=== PATIENT | female | born 2000 | race Caucasian/White ===

== ENCOUNTER 2025-02-07 11:21 | Inpatient (IN) ==
[2025-02-07] MEDS ORDERED: TERBUTALINE 1 MG/ML VIAL SUBQ PRN (11:33)
[2025-02-07] MEDS ORDERED: OXYTOCIN/SODIUM CHLORIDE 500 ML IV PRN (11:33)
[2025-02-07] MEDS ORDERED: hydrALAZINE INJ 20 MG/ML VIAL IVP PRN (11:33)
[2025-02-07] MEDS ORDERED: fentaNYL 100 MCG/2 ML VIAL IVP PRN (11:33)
[2025-02-07] MEDS ORDERED: LABETALOL 20 MG/4 ML SYRINGE IVP PRN ×3 (11:33)
[2025-02-07] MEDS ORDERED: SODIUM CHLORIDE FLUSH 0.9% 10 ML SYRINGE IVP PRN (11:33)
[2025-02-07] MEDS ORDERED: OXYTOCIN 10 UNIT/ML VIAL IM PRN (11:33)
[2025-02-07] MEDS ORDERED: CARBOPROST TROMETHAMINE 250 MCG/ML VIAL IM PRN (11:33)
--- NOTE | 2025-02-07 11:39 | HISTORY & PHYSICAL EXAMINATION ---
Admit History Smoking Status: Former smoker Other Maternal History Other Maternal History: HPI: This 24 yo @ 37+2 weeks by LMP and confirmed by 10+2 week ultrasound. She presents to L&D for medical induction of labor following diagnosis of gestational hypertension. Upon arrival, cervical exam was deferred given she has not been horacio and early gestational age. She has been consented for medical induction of labor and plan of care reviewed with [facility]. Reviewed that risks of labor/induction include but are not limited to section, prolonged labor, vacuum extraction, episotomy, hemorrhage, and additional risks exist re: prolonged second stage related to extraction. Reviewed back up OBGYN is available for consultations, emergency interventions and transfer of care if indicted. She has been a patient of [facility] for the duration of her which has remained uncomplicated with the exception of gestational hypertension. She and her Gigi were active participants in group care program. ROS: No Headache, visual changes or right upper quadrant abdominal pain. Denies significant N/V. Denies urinary urgency or dysuria. All other symptoms reviewed and were negative except per HPI. In the event of an emergency, accepts the administration of blood products. BP: 122/65 (in clinic: systolic 130-160/ diastolic 64-87) Labs: H&H 11.2/35.0, PLT 270, Serum creatinine 0.4, AST 20, ALT 19, urine MTP 0.2 Last u/s EFW: 54th percentile on 10/23/2024 Total maternal weight gain: 39# LMP: 04/24/24 KATI by LMP: 01/29/25 US: @ 10.2 wks NOT c/w LMP and dates with KATI 02/26/2025 Final KATI: 02/26/2025 ALLERGIES: NKDA/ tree nuts RX: PNV Pre- Weight: 230 BMI: 36 Blood type: A+ Antibody: Negative CBC: PLT 306; 13.5/38.6 RUB: Immune VZV: NR HBsAg: Negative HepC: NR RPR/AB-EIA: NR HIV: NR PAP: 2022-normal GC/CT: Negative HSV: denies in self and partner Genetic testing: Prequel- Negative Covid: x 2 Flu: declines FAS: Placenta: Posterior Cord: 3VC MARC: 13cm EFW: 471g 50gm OGCT: 129 3HR GTT: TDAP: 12/24/2024 Breast Pump: 12/24/2024 3rd trimester: GBS: 01/27/2025 POSITIVE EPDS 1 Delivery plan: MOD: Anticipate Contraception: undecided. Physical exam: Normocephalic, atraumatic Lungs no increased work of breathing Abdomen gravid, soft, nontender. EFW 3700 FHR baseline 120, moderate variability, + accelerations, no decelerations No uterine activity at start of MIOL. Soft uterine resting tone SVE deferred, vertex since 26 weeks. Last confirmed 02/04/2025 by BSUS, membranes intact Bilateral LE's 1+ edema Mood is good. Assessment: 24 yo @ 37+2 weeks gestation by 10+2 wk U/S Gestational hypertension FHR 130 Cat I GBS POSITIVE Plan: Admit to [facility] for MEDICAL induction of labor Misoprostol 50mcg q 4 hours (max x6 doses) Reviewed plan of care with oncall OBGYN. Will request a formal consult as indicated Will plan for daily CBC & CMP through labor course GBS positive. Will plan for Ampicillin with SROM or active labor. Continuous monitoring Jacuzzi PRN. Nitrous oxide PRN. Epidural PRN Maternal Request. Anticipate . Meds/Allgy Home Medications Ambulatory Orders Medication Instructions Recorded Confirmed vits no.[id number]-ferrous fum 1 tab PO DAILY 02/07/25 28 mg iron-folic acid 800 mcg tablet (Classic ) aspirin 81 mg tablet,delayed 81 mg PO DAILY 01/31/25 1 release (Adult Low Dose Aspirin) Allergies Allergies Allergy/AdvReac Type Severity Reaction Status Date / Time tree nuts Allergy Severe Itching Uncoded 02/07/25 14:17 PFSH Active Problems All Active Problems (Updated 02/07/25 @ 11:34 by AIDE Quiles) 37 weeks gestation of (Acute) Gestational HTN (Acute) Elevated blood pressure reading in office without diagnosis of hypertension (Acute) Spotting affecting (Acute) Positive test (Acute) Supervision of normal (Acute) Pain of left thumb (Acute) Surgical History Surgical History (Updated 07/16/24 @ 10:38 by Nhung Kasper RN) [place] teeth extracted Family History Family History (Updated 07/16/24 @ 10:38 by hNung Kasper RN) Maternal grandmother Breast cancer Social History Social History (Updated 12/27/24 @ 12:41 by AIDE Quiles) Smoking Status: Never smoker If you are a former smoker, when did you quit? (Date/Year): 06/2024 Number of Years Smoked: 6 Do you dip or chew tobacco?: No ETOH Use: None Substance Use: denies use Plan for Labor Plan For Labor I expect patient to be DC'd or transferred within 96 hours.: Yes Conclusion/Plan Lab Results 02/07/25 13:48 02/07/25 13:05
--- NOTE | 2025-02-07 12:10 | PHARMACY PROGRESS NOTE ---
Best Possible Medication History Admit Date and Time: 02/07/25 1133 Home Medications Medication Instructions Recorded Confirmed Type vits no.126-ferrous fum 1 tab PO DAILY 02/07/25 History 28 mg iron-folic acid 800 mcg tablet (Classic ) aspirin 81 mg tablet,delayed 81 mg PO DAILY 01/31/25 1 History release (Adult Low Dose Aspirin) Processed by: Pharmacy (Medication reconciliation completed by Addictions TherapistGerry) Medications reviewed in ED?: No Medication History completed: Yes Patient Interview: Completed Secondary Source(s): Insurance records [facility] Statement: As the person ultimately responsible for medication therapy, providers are able to order a medication from an existing home medication list in [facility] via the "Reconcile Routine" prior to Confirmation of that medication by manager support services. Such practice is discouraged except when the physician, in their clinical judgment, deems that a medical need exists for a medication without regard to previous use.
[2025-02-07 12:49] LABS: TOTAL PROTEIN,URINE TIMED 9.0 mg/dL
[2025-02-07] MEDS: SODIUM CHLORIDE FLUSH 0.9% 10 ML SYRINGE IVP SCH (13:18)
[2025-02-07 13:37] LABS: ALT ALANINE AMINOTRANSFERASE 19.0 IU/L (10-60); AST ASPARTATE AMINOTRANSFERASE 20.0 IU/L (10-42); BUN - BLOOD UREA NITROGEN 5.0 mg/dL (6-20); CARBON DIOXIDE - CO2 21.0 mmol/L (21-32); CREATININE 0.4 mg/dL (0.6-1.3); GFR - MDRD 193.0 (>89)
[2025-02-07 13:53] LABS: HCT - HEMATOCRIT 35.0 % (37.0-47.0); HGB - HEMOGLOBIN 11.2 g/dL (12.0-16.0); MEAN PLATELET VOLUME 8.9 fL (7.9-10.8); NRBC ABSOLUTE COUNT (AUTO) 0.00 x10^3/uL; NUCLEATED RED BLOOD CELLS AUTO 0.0 /100WBC; PLT - PLATELET COUNT 270 10^3/uL (130-450); RED CELL DISTRIBUTION WIDTH 14.8 % (12.0-15.0)
--- NOTE | 2025-02-08 08:29 | PROVIDER PROGRESS NOTE ---
Labor Progress Note Labor Progress Note Labor Progress Note/Additional Text: S: 24 yo @ 37+3 weeks gestation her on hospital day #2 for medical IOL for gestational hypertension. She has now received misoprostol 50mg x5 doses. Able to sleep/doze through most of the night. O: FHR 120-125, moderate variability, + accelerations, no significant decelerations. SVE deferred to this point BP: normotensive overnight: 120/58, 127/70, 116/68, 135/75 A: 24 yo @ 37+3 wks gestation Pre-induction cervical ripening. Gestational hypertension GBS positive P: Continuous monitoring Ampicillin for GBS prophylaxis per protocol (upon active labor onset or SROM) Delay of #6 dose of misoprostol until 11:00 to allow patient to shower and have break from monitor Will hold on repeat labs this morning as she has been normotensive overnight. Will discuss with patient, and likely recommend, cervical ripening balloon placement following SVE. Will encourage movement Anticipate .
--- NOTE | 2025-02-08 08:42 | PROVIDER PROGRESS NOTE ---
Subjective Subjective Subjective: SVE 3/70/-1 very anterior. Membranes swept. Patient breathing through contractions. Misoprostol may no longer be our best option. Will plan to release bag of water and start ampicillin closer to 11:00. Current Medications Current Medications Current Medications: Current Medications Generic Name Dose Route Start Last Admin Trade Name Freq PRN Reason Stop Dose Admin Carboprost Tromethamine 250 mcg 02/07/25 11:33 Carboprost Tromethamine 250 Mcg/Ml Vial IM .ONCE PRN Hemorrhage Fentanyl 50 mcg 02/07/25 11:33 Fentanyl 100 Mcg/2 Ml Vial IVP Q1H PRN Severe Pain (score 7-10) Hydralazine HCl 5 - 10 mg 02/07/25 11:33 Hydralazine Inj 20 Mg/Ml Vial IVP Q20M PRN SBP> or= 160 OR DBP> or= 110 Protocol Lactated Ringer's 500 mls @ 999 mls/hr 02/07/25 11:33 Lr IV PRN PRN Heart Rate Abnormalities Oxytocin/Sodium Chloride 500 mls @ 999 mls/hr 02/07/25 11:33 Pitocin/Sodium Chloride IV PRN PRN POST- HEMORR PREVENTION Protocol 999 MILLIUNIT/MIN Tranexamic Acid 1,000 mg in 100 mls @ 600 mls/hr 02/07/25 11:33 Tranexamic 1,000 Mg/100ml-Nacl IV Q30M PRN EBL >1200mL and within 3hr Labetalol HCl 20 - 80 mg 02/07/25 11:33 Labetalol 20 Mg/4 Ml Syringe IVP Q10M PRN SBP> or= 160 OR DBP> or= 110 Protocol Labetalol HCl 20 mg 02/07/25 11:33 Labetalol 20 Mg/4 Ml Syringe IVP .ONCE PRN SBP> or= 160 OR DBP> or= 110 Protocol Labetalol HCl 20 - 40 mg 02/07/25 11:33 Labetalol 20 Mg/4 Ml Syringe IVP Q10M PRN SBP> or= 160 OR DBP> or= 110 Protocol Lidocaine HCl 20 ml 02/07/25 11:33 Lidocaine 1% 20 Ml Mdv ID 02/10/25 11:33 .ONCE PRN PERINEAL REPAIR Misoprostol 600 mcg 02/07/25 11:33 Misoprostol 200 Mcg Tablet BC .ONCE PRN Hemorrhage Misoprostol 800 mcg 02/07/25 11:33 Misoprostol 200 Mcg Tablet [place] .ONCE PRN Hemorrhage Misoprostol 50 mcg 02/07/25 13:00 02/08/25 05:13 Misoprostol 100 Mcg Tablet BC 50 mcg Q4H SHRUTHI Administration Nifedipine 10 - 20 mg 02/07/25 11:33 Nifedipine 10 Mg Capsule PO Q20M PRN SBP> or= 160 OR DBP> or= 110 Protocol Oxytocin 10 unit 02/07/25 11:33 Oxytocin 10 Unit/Ml Vial IM .ONCE PRN Step One if no IV access. Sodium Chloride 10 ml 02/07/25 11:33 Sodium Chloride Flush 0.9% 10 Ml Syringe IVP PRN PRN NEEDED PER PROVIDER ORDERS Sodium Chloride 10 ml 02/07/25 12:00 02/08/25 07:42 Sodium Chloride Flush 0.9% 10 Ml Syringe IVP Not Given Q8H SHRUTHI Terbutaline Sulfate 0.25 mg 02/07/25 11:33 Terbutaline 1 Mg/Ml Vial SUBQ .ONCE PRN Tachystole Objective Vital Signs/Intake & Output Intake & Output: Intake & Output 02/05/25 02/06/25 02/07/25 02/08/25 23:59 23:59 23:59 23:59 Weight (kg) 276 lb 9.6 oz Lab Results 02/07/25 13:48 02/07/25 13:05 Other Labs: Lab Results x24hrs 02/07/25 02/07/25 02/07/25 Range/Units 13:48 13:05 11:50 WBC 9.8 (4.8-10.8) x10^3/uL RBC 4.45 (4.20-5.40) 10^6/uL Hgb 11.2 L (12.0-16.0) g/dL Hct 35.0 L (37.0-47.0) % MCV 78.7 L (81.0-99.0) fL MCH 25.2 L (27.0-31.0) pg MCHC 32.0 (32.0-36.0) g/dL RDW 14.8 (12.0-15.0) % Plt Count 270 (130-450) 10^3/uL MPV 8.9 (7.9-10.8) fL Neut # (Auto) 7.2 H (1.5-6.6) 10^3/uL Lymph # (Auto) 1.8 (1.5-3.5) 10^3/uL [place] # (Auto) 0.7 (0.0-1.0) 10^3/uL Eos # (Auto) 0.1 (0.0-0.7) 10^3/uL Baso # (Auto) 0.0 (0.0-0.1) 10^3/uL Absolute Nucleated RBC 0.00 x10^3/uL Nucleated RBC % 0.0 /100WBC Sodium 135 (135-145) mmol/L Potassium 3.7 (3.5-4.5) mmol/L Chloride 105 (101-111) mmol/L Carbon Dioxide 21 (21-32) mmol/L Anion Gap 9.0 (6-13) BUN 5 L (6-20) mg/dL Creatinine 0.4 L (0.6-1.3) mg/dL Estimated GFR (MDRD) 193 (>89) Glucose 68 L (74-104) mg/dL Calcium 9.2 (8.5-10.3) mg/dL Total Bilirubin 0.3 (0.2-1.0) mg/dL AST 20 (10-42) IU/L ALT 19 (10-60) IU/L Alkaline Phosphatase 152 H (42-121) IU/L Total Protein 6.8 (6.4-8.9) g/dL Albumin 3.5 (3.2-5.5) g/dL Globulin 3.3 (2.1-4.2) g/dL Albumin/Globulin Ratio 1.1 (1.0-2.2) Urine Creatinine 58.0 mg/dL Ur Total Protein Timed 9 mg/dL Protein/Creatinin Ratio 0.2 (<=0.2) Blood Type A POSITIVE Antibody Screen NEGATIVE
--- NOTE | 2025-02-08 10:01 | PROVIDER PROGRESS NOTE ---
Subjective Subjective Subjective: Patient became increasing uncomfortable, requesting epidural. Anesthesia notified. Current Medications Current Medications Current Medications: Current Medications Generic Name Dose Route Start Last Admin Trade Name Freq PRN Reason Stop Dose Admin Carboprost Tromethamine 250 mcg 02/07/25 11:33 Carboprost Tromethamine 250 Mcg/Ml Vial IM .ONCE PRN Hemorrhage Fentanyl 50 mcg 02/07/25 11:33 Fentanyl 100 Mcg/2 Ml Vial IVP Q1H PRN Severe Pain (score 7-10) Hydralazine HCl 5 - 10 mg 02/07/25 11:33 Hydralazine Inj 20 Mg/Ml Vial IVP Q20M PRN SBP> or= 160 OR DBP> or= 110 Protocol Lactated Ringer's 500 mls @ 999 mls/hr 02/07/25 11:33 Lr IV PRN PRN Heart Rate Abnormalities Oxytocin/Sodium Chloride 500 mls @ 999 mls/hr 02/07/25 11:33 Pitocin/Sodium Chloride IV PRN PRN POST- HEMORR PREVENTION Protocol 999 MILLIUNIT/MIN Tranexamic Acid 1,000 mg in 100 mls @ 600 mls/hr 02/07/25 11:33 Tranexamic 1,000 Mg/100ml-Nacl IV Q30M PRN EBL >1200mL and within 3hr Ampicillin Sodium 2 gm/ Sodium 100 mls @ 100 mls/hr 02/08/25 09:33 Chloride IV 02/08/25 10:32 ONCE ONE Ampicillin Sodium 1 gm/ Sodium 100 mls @ 200 mls/hr 02/08/25 14:00 Chloride IV Q4H [facility] Labetalol HCl 20 - 80 mg 02/07/25 11:33 Labetalol 20 Mg/4 Ml Syringe IVP Q10M PRN SBP> or= 160 OR DBP> or= 110 Protocol Labetalol HCl 20 mg 02/07/25 11:33 Labetalol 20 Mg/4 Ml Syringe IVP .ONCE PRN SBP> or= 160 OR DBP> or= 110 Protocol Labetalol HCl 20 - 40 mg 02/07/25 11:33 Labetalol 20 Mg/4 Ml Syringe IVP Q10M PRN SBP> or= 160 OR DBP> or= 110 Protocol Lidocaine HCl 20 ml 02/07/25 11:33 Lidocaine 1% 20 Ml Mdv ID 02/10/25 11:33 .ONCE PRN PERINEAL REPAIR Misoprostol 600 mcg 02/07/25 11:33 Misoprostol 200 Mcg Tablet BC .ONCE PRN Hemorrhage Misoprostol 800 mcg 02/07/25 11:33 Misoprostol 200 Mcg Tablet [place] .ONCE PRN Hemorrhage Misoprostol 50 mcg 02/07/25 13:00 02/08/25 05:13 Misoprostol 100 Mcg Tablet BC 50 mcg Q4H SHRUTHI Administration Nifedipine 10 - 20 mg 02/07/25 11:33 Nifedipine 10 Mg Capsule PO Q20M PRN SBP> or= 160 OR DBP> or= 110 Protocol Oxytocin 10 unit 02/07/25 11:33 Oxytocin 10 Unit/Ml Vial IM .ONCE PRN Step One if no IV access. Sodium Chloride 10 ml 02/07/25 11:33 Sodium Chloride Flush 0.9% 10 Ml Syringe IVP PRN PRN NEEDED PER PROVIDER ORDERS Sodium Chloride 10 ml 02/07/25 12:00 02/08/25 07:42 Sodium Chloride Flush 0.9% 10 Ml Syringe IVP Not Given Q8H SHRUTHI Terbutaline Sulfate 0.25 mg 02/07/25 11:33 Terbutaline 1 Mg/Ml Vial SUBQ .ONCE PRN Tachystole Objective Vital Signs/Intake & Output Vital Signs: Vital Signs x48h Temp Pulse Resp BP 02/08/25 08:39 36.8 C 93 16 135/74 H Intake & Output: Intake & Output 02/05/25 02/06/25 02/07/25 02/08/25 23:59 23:59 23:59 23:59 Weight (kg) 276 lb 9.6 oz Lab Results 02/07/25 13:48 02/07/25 13:05 Other Labs: Lab Results x24hrs 02/07/25 02/07/25 02/07/25 Range/Units 13:48 13:05 11:50 WBC 9.8 (4.8-10.8) x10^3/uL RBC 4.45 (4.20-5.40) 10^6/uL Hgb 11.2 L (12.0-16.0) g/dL Hct 35.0 L (37.0-47.0) % MCV 78.7 L (81.0-99.0) fL MCH 25.2 L (27.0-31.0) pg MCHC 32.0 (32.0-36.0) g/dL RDW 14.8 (12.0-15.0) % Plt Count 270 (130-450) 10^3/uL MPV 8.9 (7.9-10.8) fL Neut # (Auto) 7.2 H (1.5-6.6) 10^3/uL Lymph # (Auto) 1.8 (1.5-3.5) 10^3/uL [place] # (Auto) 0.7 (0.0-1.0) 10^3/uL Eos # (Auto) 0.1 (0.0-0.7) 10^3/uL Baso # (Auto) 0.0 (0.0-0.1) 10^3/uL Absolute Nucleated RBC 0.00 x10^3/uL Nucleated RBC % 0.0 /100WBC Sodium 135 (135-145) mmol/L Potassium 3.7 (3.5-4.5) mmol/L Chloride 105 (101-111) mmol/L Carbon Dioxide 21 (21-32) mmol/L Anion Gap 9.0 (6-13) BUN 5 L (6-20) mg/dL Creatinine 0.4 L (0.6-1.3) mg/dL Estimated GFR (MDRD) 193 (>89) Glucose 68 L (74-104) mg/dL Calcium 9.2 (8.5-10.3) mg/dL Total Bilirubin 0.3 (0.2-1.0) mg/dL AST 20 (10-42) IU/L ALT 19 (10-60) IU/L Alkaline Phosphatase 152 H (42-121) IU/L Total Protein 6.8 (6.4-8.9) g/dL Albumin 3.5 (3.2-5.5) g/dL Globulin 3.3 (2.1-4.2) g/dL Albumin/Globulin Ratio 1.1 (1.0-2.2) Urine Creatinine 58.0 mg/dL Ur Total Protein Timed 9 mg/dL Protein/Creatinin Ratio 0.2 (<=0.2) Blood Type A POSITIVE Antibody Screen NEGATIVE
[2025-02-08] MEDS ORDERED: LIDOCAINE 2%-EPI 1:100000 20 ML MDV ONE (10:09)
[2025-02-08] MEDS ORDERED: ROPIVACAINE 0.2% 200 MG/100 ML BAG EP ONE (10:09)
[2025-02-08 11:04] LABS: HCT - HEMATOCRIT 36.6 % (37.0-47.0); HGB - HEMOGLOBIN 11.6 g/dL (12.0-16.0); MEAN PLATELET VOLUME 9.2 fL (7.9-10.8); NRBC ABSOLUTE COUNT (AUTO) 0.00 x10^3/uL; NUCLEATED RED BLOOD CELLS AUTO 0.0 /100WBC; PLT - PLATELET COUNT 270 10^3/uL (130-450); RED CELL DISTRIBUTION WIDTH 14.8 % (12.0-15.0)
[2025-02-08] MEDS: AMPICILLIN 2 GM in SODIUM CHLORIDE 0.9% MINIBAG 100 ML IV ONE (11:09)
[2025-02-08 11:13] LABS: TOTAL PROTEIN,URINE TIMED 20.0 mg/dL
[2025-02-08 11:18] LABS: ALT ALANINE AMINOTRANSFERASE 18.0 IU/L (10-60); AST ASPARTATE AMINOTRANSFERASE 18.0 IU/L (10-42); BUN - BLOOD UREA NITROGEN 6.0 mg/dL (6-20); CARBON DIOXIDE - CO2 22.0 mmol/L (21-32); CREATININE 0.5 mg/dL (0.6-1.3); GFR - MDRD 149.0 (>89)
--- NOTE | 2025-02-08 12:11 | PROVIDER PROGRESS NOTE ---
Subjective Prog Note Date Prog Note Date: 02/08/25 Prog Note Time: 12:00 Subjective Subjective: Contractions not tracing well since AROM (small amount of clear fluid). Given medical induction and needing to move towards delivery, IUPC placed to adequately trace contractions and allow for frequent positional changes. If contractions space out greater than q 3-4 minutes, and MVU's less than 200mmHg, will plan to begin oxytocin. Will place the order now, but can hold on initiating if contraction pattern is adequate. Will reassess for cervical change in 4 hours or sooner if indicated. FHT 125, moderate variability, + accelerations, no significant decelerations. Current Medications Current Medications Current Medications: Current Medications Generic Name Dose Route Start Last Admin Trade Name Freq PRN Reason Stop Dose Admin Carboprost Tromethamine 250 mcg 02/07/25 11:33 Carboprost Tromethamine 250 Mcg/Ml Vial IM .ONCE PRN Hemorrhage Fentanyl 50 mcg 02/07/25 11:33 Fentanyl 100 Mcg/2 Ml Vial IVP Q1H PRN Severe Pain (score 7-10) Hydralazine HCl 5 - 10 mg 02/07/25 11:33 Hydralazine Inj 20 Mg/Ml Vial IVP Q20M PRN SBP> or= 160 OR DBP> or= 110 Protocol Lactated Ringer's 500 mls @ 999 mls/hr 02/07/25 11:33 Lr IV PRN PRN Heart Rate Abnormalities Oxytocin/Sodium Chloride 500 mls @ 999 mls/hr 02/07/25 11:33 Pitocin/Sodium Chloride IV PRN PRN POST- HEMORR PREVENTION Protocol 999 MILLIUNIT/MIN Tranexamic Acid 1,000 mg in 100 mls @ 600 mls/hr 02/07/25 11:33 Tranexamic 1,000 Mg/100ml-Nacl IV Q30M PRN EBL >1200mL and within 3hr Ampicillin Sodium 1 gm/ Sodium 100 mls @ 200 mls/hr 02/08/25 14:00 Chloride IV Q4H SHRUTHI Labetalol HCl 20 - 80 mg 02/07/25 11:33 Labetalol 20 Mg/4 Ml Syringe IVP Q10M PRN SBP> or= 160 OR DBP> or= 110 Protocol Labetalol HCl 20 mg 02/07/25 11:33 Labetalol 20 Mg/4 Ml Syringe IVP .ONCE PRN SBP> or= 160 OR DBP> or= 110 Protocol Labetalol HCl 20 - 40 mg 02/07/25 11:33 Labetalol 20 Mg/4 Ml Syringe IVP Q10M PRN SBP> or= 160 OR DBP> or= 110 Protocol Lidocaine HCl 20 ml 02/07/25 11:33 Lidocaine 1% 20 Ml Mdv ID 02/10/25 11:33 .ONCE PRN PERINEAL REPAIR Misoprostol 600 mcg 02/07/25 11:33 Misoprostol 200 Mcg Tablet BC .ONCE PRN Hemorrhage Misoprostol 800 mcg 02/07/25 11:33 Misoprostol 200 Mcg Tablet [place] .ONCE PRN Hemorrhage Misoprostol 50 mcg 02/07/25 13:00 02/08/25 05:13 Misoprostol 100 Mcg Tablet BC 50 mcg Q4H SHRUTHI Administration Nifedipine 10 - 20 mg 02/07/25 11:33 Nifedipine 10 Mg Capsule PO Q20M PRN SBP> or= 160 OR DBP> or= 110 Protocol Oxytocin 10 unit 02/07/25 11:33 Oxytocin 10 Unit/Ml Vial IM .ONCE PRN Step One if no IV access. Sodium Chloride 10 ml 02/07/25 11:33 Sodium Chloride Flush 0.9% 10 Ml Syringe IVP PRN PRN NEEDED PER PROVIDER ORDERS Sodium Chloride 10 ml 02/07/25 12:00 02/08/25 07:42 Sodium Chloride Flush 0.9% 10 Ml Syringe IVP Not Given Q8H SHRUTHI Terbutaline Sulfate 0.25 mg 02/07/25 11:33 Terbutaline 1 Mg/Ml Vial SUBQ .ONCE PRN Tachystole Objective Vital Signs/Intake & Output Vital Signs: Vital Signs x48h Temp Pulse Resp BP 02/08/25 08:39 36.8 C 93 16 135/74 H Intake & Output: Intake & Output 02/05/25 02/06/25 02/07/25 02/08/25 23:59 23:59 23:59 23:59 Weight (kg) 276 lb 9.6 oz Lab Results 02/08/25 10:57 02/08/25 10:57 Other Labs: Lab Results x24hrs 02/08/25 02/08/25 02/07/25 Range/Units 10:57 10:51 13:48 WBC 12.4 H 9.8 (4.8-10.8) x10^3/uL RBC 4.66 4.45 (4.20-5.40) 10^6/uL Hgb 11.6 L 11.2 L (12.0-16.0) g/dL Hct 36.6 L 35.0 L (37.0-47.0) % MCV 78.5 L 78.7 L (81.0-99.0) fL MCH 24.9 L 25.2 L (27.0-31.0) pg MCHC 31.7 L 32.0 (32.0-36.0) g/dL RDW 14.8 14.8 (12.0-15.0) % Plt Count 270 270 (130-450) 10^3/uL MPV 9.2 8.9 (7.9-10.8) fL Neut # (Auto) 10.3 H 7.2 H (1.5-6.6) 10^3/uL Lymph # (Auto) 1.2 L 1.8 (1.5-3.5) 10^3/uL [place] # (Auto) 0.7 0.7 (0.0-1.0) 10^3/uL Eos # (Auto) 0.1 0.1 (0.0-0.7) 10^3/uL Baso # (Auto) 0.0 0.0 (0.0-0.1) 10^3/uL Absolute Nucleated RBC 0.00 0.00 x10^3/uL Nucleated RBC % 0.0 0.0 /100WBC Sodium 135 (135-145) mmol/L Potassium 3.6 (3.5-4.5) mmol/L Chloride 106 (101-111) mmol/L Carbon Dioxide 22 (21-32) mmol/L Anion Gap 7.0 (6-13) BUN 6 (6-20) mg/dL Creatinine 0.5 L (0.6-1.3) mg/dL Estimated GFR (MDRD) 149 (>89) Glucose 90 (74-104) mg/dL Calcium 8.7 (8.5-10.3) mg/dL Total Bilirubin 0.4 (0.2-1.0) mg/dL AST 18 (10-42) IU/L ALT 18 (10-60) IU/L Alkaline Phosphatase 126 H (42-121) IU/L Total Protein 6.6 (6.4-8.9) g/dL Albumin 3.3 (3.2-5.5) g/dL Globulin 3.3 (2.1-4.2) g/dL Albumin/Globulin Ratio 1.0 (1.0-2.2) Urine Creatinine 155.2 mg/dL Ur Total Protein Timed 20 mg/dL Protein/Creatinin Ratio 0.1 (<=0.2) Blood Type Antibody Screen 02/07/25 02/07/25 Range/Units 13:05 11:50 WBC (4.8-10.8) x10^3/uL RBC (4.20-5.40) 10^6/uL Hgb (12.0-16.0) g/dL Hct (37.0-47.0) % MCV (81.0-99.0) fL MCH (27.0-31.0) pg MCHC (32.0-36.0) g/dL RDW (12.0-15.0) % Plt Count (130-450) 10^3/uL MPV (7.9-10.8) fL Neut # (Auto) (1.5-6.6) 10^3/uL Lymph # (Auto) (1.5-3.5) 10^3/uL [place] # (Auto) (0.0-1.0) 10^3/uL Eos # (Auto) (0.0-0.7) 10^3/uL Baso # (Auto) (0.0-0.1) 10^3/uL Absolute Nucleated RBC x10^3/uL Nucleated RBC % /100WBC Sodium 135 (135-145) mmol/L Potassium 3.7 (3.5-4.5) mmol/L Chloride 105 (101-111) mmol/L Carbon Dioxide 21 (21-32) mmol/L Anion Gap 9.0 (6-13) BUN 5 L (6-20) mg/dL Creatinine 0.4 L (0.6-1.3) mg/dL Estimated GFR (MDRD) 193 (>89) Glucose 68 L (74-104) mg/dL Calcium 9.2 (8.5-10.3) mg/dL Total Bilirubin 0.3 (0.2-1.0) mg/dL AST 20 (10-42) IU/L ALT 19 (10-60) IU/L Alkaline Phosphatase 152 H (42-121) IU/L Total Protein 6.8 (6.4-8.9) g/dL Albumin 3.5 (3.2-5.5) g/dL Globulin 3.3 (2.1-4.2) g/dL Albumin/Globulin Ratio 1.1 (1.0-2.2) Urine Creatinine 58.0 mg/dL Ur Total Protein Timed 9 mg/dL Protein/Creatinin Ratio 0.2 (<=0.2) Blood Type A POSITIVE Antibody Screen NEGATIVE
[2025-02-08] MEDS ORDERED: ROPIVACAINE 0.2% 200 MG/100 ML BAG EP PRN (12:27)
--- NOTE | 2025-02-08 12:38 | ANESTHESIA PROCEDURE NOTE ---
Pre-Anesthesia VS, & Labs Diagnosis Surgical Diagnosis:: Induction of labor Procedure Procedure: vaginal delivery Vitals Vital Signs: Temp Pulse Resp BP Pulse Ox 36.8 C 93 16 135/74 H 99 02/08/25 08:39 02/08/25 08:39 02/08/25 08:39 02/08/25 08:39 02/07/25 15:31 NPO Last Fluid Intake: clear liquids Is Patient ?: Yes Lab Results Current Lab Results: Laboratory Tests 02/08/25 10:57: WBC 12.4 H, RBC 4.66, Hgb 11.6 L, Hct 36.6 L, MCV 78.5 L, MCH 24.9 L, MCHC 31.7 L, RDW 14.8, Plt Count 270, MPV 9.2, Neut # (Auto) 10.3 H, L ymph # (Auto) 1.2 L, [place] # (Auto) 0.7, Eos # (Auto) 0.1, Baso # (Auto) 0.0, Absolute Nucleated RBC 0.00, Nucleated RBC % 0.0, Sodium 135, Potassium 3.6, Chloride 106, Carbon Dioxide 22, Anion Gap 7.0, BUN 6, Creatinine 0.5 L, Estimated GFR (MDRD) 149, Glucose 90, Calcium 8.7, Total Bilirubin 0.4, AST 18, ALT 18, Alkaline Phosphatase 126 H, Total Protein 6.6, Albumin 3.3, Globulin 3.3, Albumin/Globulin Ratio 1.0 02/07/25 13:48: WBC 9.8, RBC 4.45, Hgb 11.2 L, Hct 35.0 L, MCV 78.7 L, MCH 25.2 L, MCHC 32.0, RDW 14.8, Plt Count 270, MPV 8.9, Neut # (Auto) 7.2 H, Lymph # (Auto) 1.8, [place] # (Auto) 0.7, Eos # (Auto) 0.1, Baso # (Auto) 0.0, Absolute Nucleated RBC 0.00, Nucleated RBC % 0.0 02/07/25 13:05: Sodium 135, Potassium 3.7, Chloride 105, Carbon Dioxide 21, Anion Gap 9.0, BUN 5 L, Creatinine 0.4 L, Estimated GFR (MDRD) 193, Glucose 68 L , Calcium 9.2, Total Bilirubin 0.3, AST 20, ALT 19, Alkaline Phosphatase 152 H, Total Protein 6.8, Albumin 3.5, Globulin 3.3, Albumin/Globulin Ratio 1.1, Blood Type A POSITIVE, Antibody Screen NEGATIVE Lab results reviewed: Yes 02/08/25 10:57 02/08/25 10:57 Meds/Allgy Home Medications Ambulatory Orders Medication Instructions Recorded Confirmed vits no.126-ferrous fum 1 tab PO DAILY 02/07/25 28 mg iron-folic acid 800 mcg tablet (Classic ) aspirin 81 mg tablet,delayed 81 mg PO DAILY 01/31/25 1 release (Adult Low Dose Aspirin) Allergies Allergies Allergy/AdvReac Type Severity Reaction Status Date / Time tree nuts Allergy Severe Itching Uncoded 02/07/25 14:17 PFSH Active Problems All Active Problems 37 weeks gestation of (Acute) Gestational HTN (Acute) Elevated blood pressure reading in office without diagnosis of hypertension (Acute) Spotting affecting (Acute) Positive test (Acute) Supervision of normal (Acute) Pain of left thumb (Acute) Surgical History Surgical History [place] teeth extracted Family History Family History (Updated 07/16/24 @ 10:38 by Nhung Kasper RN) Maternal grandmother Breast cancer Social History Social History (Updated 12/27/24 @ 12:41 by AIDE Quiles) Smoking Status: Never smoker If you are a former smoker, when did you quit? (Date/Year): 06/2024 Number of Years Smoked: 6 Do you dip or chew tobacco?: No ETOH Use: None Substance Use: denies use POLST POLST CPR Status: Attempt Resuscitation (CPR) Level of Medical Intervention: Full Treatment Anesthesia Exam (Expanded) Exam General: Alert, Oriented x3 and Cooperative Dental: WNL Mouth Openin Fingerbreadth Neck Mobility: Normal Mallampati classification: II Thyromental Distance: 4-6 cm Exam Exam Vital Signs: Vital Signs x48h Temp Pulse Resp BP 02/08/25 08:39 36.8 C 93 16 135/74 H Plan Plan Anesthesia Type: Epidural Consent for Procedure(s) Verified and Reviewed: Yes Code Status: Attempt Resuscitation ASA Classification ASA classification: 2-Mild systemic disease Is this case an emergency?: No
[2025-02-08] MEDS: LACTATED RINGERS 1,000 ML IV PRN (12:39)
[2025-02-08] MEDS: OXYTOCIN/SODIUM CHLORIDE 500 ML IV SCH (13:22)
[2025-02-08] MEDS: ONDANSETRON 4 MG/2 ML VIAL IVP PRN (14:15)
[2025-02-08] MEDS: AMPICILLIN 1 GM in SODIUM CHLORIDE 0.9% MINIBAG 100 ML IV SCH (15:04)
[2025-02-08] MEDS: TRANEXAMIC ACID IN NACL 1,000 MG/100 ML BAG IV PRN (17:28)
[2025-02-08] MEDS ORDERED: NALOXONE 0.4 MG/ML VIAL IVP PRN (17:56)
[2025-02-08] MEDS ORDERED: ACETAMINOPHEN 500 MG TABLET PO PRN (17:56)
[2025-02-08] MEDS ORDERED: SIMETHICONE CHEW 80 MG TABLET PO PRN (17:56)
[2025-02-08] MEDS ORDERED: IBUPROFEN 600 MG TABLET PO PRN (17:56)
[2025-02-08] MEDS ORDERED: hydrALAZINE INJ 20 MG/ML VIAL IVP PRN ×2 (17:56)
[2025-02-08] MEDS ORDERED: OXYTOCIN/SODIUM CHLORIDE 500 ML IV PRN (17:56)
[2025-02-08] MEDS ORDERED: LABETALOL 20 MG/4 ML SYRINGE IVP PRN ×2 (17:56)
[2025-02-08] MEDS ORDERED: LABETALOL 5 MG/1 ML 20 ML MDV IVP PRN (17:56)
--- NOTE | 2025-02-08 17:56 | DELIVERY NOTE ---
Delivery Note Delivery Comments (Free Text/Narrative) Delivery Comments (Free Text/Narrative): This 24 -year-old, G 1 P 0 presented to L&D @ 37+2 late yesterday morning for medical induction of labor following diagnosis of gestational hypertension. Cervical exam deferred until she became uncomfortable. Vertex presentation by gaurav with series of clinic BSUS. GBS Positive, treated x2 doses. Misoprostol x 5 doses Oxytocin maximum dose of infusion of 4 mu/min. FHR pattern demonstrated 125 baseline in a category I prior to second stage. Impressive pace of labor progression. Epidural placed upon maternal request. AROM occurred @ 1105 today (02/08/2025), scant amount of clear fluid. She then progressed to complete/complete @ 1613 and active second second stage began upon my arrival to the unit at about 1630. She had been well supported by RN team through the course of pre-induction cervical ripening, labor and delivery. : Normal spontaneous vaginal delivery of a viable male on 02/08/2025 @ 1705. Nuchal x 1, reduced. The was placed on maternal abdomen, stimulated, dried but no spontaneous respirations and poor tone and color. Delayed cord clamping x 45 seconds then with no change to status, the umbilical cord was doubly clamped by delivering provider and cut by FOB so that baby could be brought to the warmer for further resuscitation efforts. Apgars 2/5/9 at 1, 5 & 10 minutes respectively. 3VC. Segment of cord saved for cord gasses but not ran as it was not needed to guide resuscitation efforts. Cord blood was obtained. Fundal massage and gently cord traction applied for active management of the third stage, placenta delivered spontaneously and intact and appeared normal @ 1712. Increased bleeding re uterine atony as well as vaginal sulcus and first degree perineal laceration. Total blood loss, 930cc QBL. Pitocin was administered by IV bolus, IV TXA and BC misoprostol given to achieve homeostasis. Placenta was not sent to pathology. Uterine massage was performed until uterus was deemed firm. weight pending at this time but appears AGA. Inspection of the perineum noted a first degree midline and an extended vaginal sulcus laceration. The laceration was repaired under epidural anesthesia with running 3-0 vicryl rapide, repaired in standards fashion under sterile conditions. Upon re-inspection the patient was hemostatic. Superficial abrasion to right labia minora (not bleeding and not repaired). Uterus again massaged and found to be firm. Needle and sponge counts were correct. Uterine fundus firm and there is no excessive bleeding. Tissues well approximated. Skin to skin initiated by approximately 15 minutes of life. Family bonding well. Both mother and baby are in stable condition.
[2025-02-09] MEDS: DOCUSATE SODIUM 100 MG CAPSULE PO SCH (07:57)
--- NOTE | 2025-02-09 11:45 | PROVIDER PROGRESS NOTE ---
Subjective Subjective Subjective: S: Bonding well with baby. without difficulty other than baby does not seem all that interested in feeding. Bleeding decreased and is light. Pain is well controlled with oral medications. She is urinating without difficulty. Has not yet had BM. and mother in law are supportive at the bedside. O: Heart RRR w/o M/G/R, lungs CTAB, abdomen soft and nontender with fundus firm at U, perineum intact, light lochia rubra, bilateral LE's trace edema A: 24yo -->P1 PPD#1 s/p TSVD viable male infant Normal recovery P: Continue routine care and medications. Evaluate for discharge home tomorrow Current Medications Current Medications Current Medications: Current Medications Generic Name Dose Route Start Last Admin Trade Name Freq PRN Reason Stop Dose Admin Acetaminophen 1,000 mg 02/08/25 17:56 Acetaminophen 500 Mg Tablet PO Q8HR PRN Mild Pain or Fever>38C(100.4F) Carboprost Tromethamine 250 mcg 02/07/25 11:33 Carboprost Tromethamine 250 Mcg/Ml Vial IM .ONCE PRN Hemorrhage Docusate Sodium 100 mg 02/08/25 21:00 02/09/25 09:05 Docusate Sodium 100 Mg Capsule PO 100 mg BID SHRUTHI Administration Hydralazine HCl 5 - 10 mg 02/07/25 11:33 Hydralazine Inj 20 Mg/Ml Vial IVP Q20M PRN SBP> or= 160 OR DBP> or= 110 Protocol Hydralazine HCl 10 mg 02/08/25 17:56 Hydralazine Inj 20 Mg/Ml Vial IVP .ONCE PRN SBP> or= 160 OR DBP> or= 110 Protocol Hydralazine HCl 5 - 10 mg 02/08/25 17:56 Hydralazine Inj 20 Mg/Ml Vial IVP Q20M PRN SBP >=160 and/or DBP >=110 Protocol Ibuprofen 600 mg 02/08/25 17:56 Ibuprofen 600 Mg Tablet PO Q6HR PRN Moderate Pain (Level 4-6) Labetalol HCl 20 - 80 mg 02/07/25 11:33 Labetalol 20 Mg/4 Ml Syringe IVP Q10M PRN SBP> or= 160 OR DBP> or= 110 Protocol Labetalol HCl 20 mg 02/07/25 11:33 Labetalol 20 Mg/4 Ml Syringe IVP .ONCE PRN SBP> or= 160 OR DBP> or= 110 Protocol Labetalol HCl 20 - 40 mg 02/07/25 11:33 Labetalol 20 Mg/4 Ml Syringe IVP Q10M PRN SBP> or= 160 OR DBP> or= 110 Protocol Labetalol HCl 20 - 80 mg 02/08/25 17:56 Labetalol 5 Mg/1 Ml 20 Ml Mdv IVP Q10M PRN SBP> or= 160 OR DBP> or= 110 Protocol Labetalol HCl 20 - 40 mg 02/08/25 17:56 Labetalol 20 Mg/4 Ml Syringe IVP Q10M PRN SBP> or= 160 OR DBP> or= 110 Protocol Labetalol HCl 20 mg 02/08/25 17:56 Labetalol 20 Mg/4 Ml Syringe IVP .ONCE PRN SBP >=160 and/or DBP >=110 Protocol Nifedipine 10 - 20 mg 02/07/25 11:33 Nifedipine 10 Mg Capsule PO Q20M PRN SBP> or= 160 OR DBP> or= 110 Protocol Nifedipine 10 - 20 mg 02/08/25 17:56 Nifedipine 10 Mg Capsule PO Q20M PRN SBP >=160 and/or DBP >=110 Protocol Simethicone 80 mg 02/08/25 17:56 Simethicone Chew 80 Mg Tablet PO TID PRN Gas Sodium Chloride 10 ml 02/07/25 11:33 Sodium Chloride Flush 0.9% 10 Ml Syringe IVP PRN PRN NEEDED PER PROVIDER ORDERS Objective Vital Signs/Intake & Output Vital Signs: Vital Signs x48h Temp Pulse Resp BP Pulse Ox 02/09/25 09:43 98.1 F 89 16 107/55 L 02/09/25 05:37 97.9 F 80 18 98/51 L 97 Intake & Output: Intake & Output 02/06/25 02/07/25 02/08/25 02/09/25 23:59 23:59 23:59 23:59 Intake Total Output Total 500 / 500 500 / 500 Balance -499 / -499 -500 / -500 Weight (kg) 276 lb 9.6 oz Lab Results 02/08/25 10:57 02/08/25 10:57
[2025-02-10 08:06] VITALS: TEMP 98.1; O2SAT 95
--- NOTE | 2025-02-10 10:08 | Discharge Summary ---
Discharge Summary HOSPITAL COURSE Hospital Course: Date of Admission: 02/07/2025 Date of Discharge: 02/10/2025 Diagnosis on Admission: 1. 24 yo @ 37+2 weeks gestation by 10+2 wk U/S 2. Gestational hypertension 3. FHR 130 Cat I 4. GBS POSITIVE Diagnosis on Discharge: 1. 24yo PPD#2 s/p TSVD viable male 2. 3. Normal recovery Brief History: She is a patient of [facility] who presented on 02/07/2025 for medical induction of labor secondary to gestational hypertension. Cervical exam was deferred due to early gestation and absence of contractions. She received 5 doses of 50mcg BC misoprostol for pre-induction cervical ripening followed by initiation of pitocin for augmentation of labor with a maximum infusion rate of 4 mU/min. Epidural was placed per maternal request. AROM occurred on 02/08/2025 @ 1105 and was noted to be a moderate amount of clear fluid. She spontaneously progressed to deliver a viable male on 02/08/2025 @ 1705. Perineum was found to have a 1st degree perineal laceration with vaginal extension which was repaired using a 3-[address]-1 needle in standard fashion and under sterile conditions. Apgars were 2/5/9 at 1, 5, and 10 minutes respectively. QBL 930 mL. Secondary to her increased rate of bleeding she was given pitocin via IV fluid bolus, IV TXA and BC misoprostol with hemostasis achieved. She has been doing well in her course. She is ambulating and tolerating a regular diet. She is urinating without difficulty and her lochia is normal. Her pain is well controlled with oral medications. She will be discharged home today on day #1 with instructions to continue taking her vitamin while and to continue taking Ibuprofen and Tylenol over the counter as needed for pain management. She will also be given a blue hypertension wrist band and has been given instructions to wear throughout her 6wk pp course. She intends to follow up with myself at [facility] in 1 week for routine visit or sooner if needed. She has been given precautions to call if she has any worsening fevers, chills, abdominal pain, increased vaginal bleeding or foul smelling vaginal lochia. Physical Exam: Normocephalic, atraumatic. Heart RRR w/o M/G/R, lungs CTAB, abdomen soft and nontender with fundus firm at U-1, perineum intact, light lochia rubra, bilateral LE's no edema. Mood is good. ALLERGIES Allergies Allergy/AdvReac Type Severity Reaction Status Date / Time tree nuts Allergy Severe Itching Uncoded 02/07/25 14:17 MEDICATIONS Ambulatory Orders Medication Instructions Recorded Confirmed vits no.126-ferrous fum 1 tab PO DAILY 02/07/25 28 mg iron-folic acid 800 mcg tablet (Classic ) PHYSICAL EXAM AT DISCHARGE Vital Signs: Vital Signs x48h Temp Pulse Resp BP Pulse Ox 02/10/25 08:02 98.1 F 91 16 134/73 H 95 02/10/25 05:24 98.2 F 89 19 101/54 L 97 LABS 02/08/25 10:57 02/08/25 10:57 Discharge Plan Discharge Patient Disposition: 01 Home, Self Care Prescriptions: Continued Classic 28 mg iron- 800 mcg tablet 1 tab PO DAILY Discontinued aspirin [Adult Low Dose Aspirin] 81 mg tablet,delayed release (DR/EC) 81 mg PO DAILY Print Language: Azeri Patient Instructions: After a Vaginal , : Caring for Yourself Follow-up Care: TYREE SULLIVAN MD [Primary Care Provider, Family Practice]
[2025-02-10 11:21] VITALS: BP 139/64
--- NOTE | 2025-02-10 11:25 | Labor Flowsheet ---
Labor Flowsheet Datetime Report Generated by CPN: 02/10/2025 11:25 Datetime: 02/10/2025 11:05 VITAL SIGNS NBP Sys/Silva/Mean (mmHg): 139 : 64 : 81 Pulse: 90 LaborFlag: Labor Datetime: 02/08/2025 18:38 SpO2 (%): 96 Datetime: 02/08/2025 17:12 Stage 2 Comments: placenta Datetime: 02/08/2025 16:50 Comments: broken tracing. rn at bedside continuously adjusting monitor to catch FHT Datetime: 02/08/2025 16:45 ASSESSMENT A Monitor Mode: External US FHR Baseline Rate : 145 Datetime: 02/08/2025 16:40 UTERINE ACTIVITY Monitor Mode: External Quality: Moderate Pattern: Normal: <= 5 Contractions in 10 Minutes Resting Tone (Palpate): Relaxed Contraction Comments: IUPC removed. pt pushing as she feels. Variability: Moderate 6-25 bpm Datetime: 02/08/2025 16:36 I/O Interventions: Mendez Discontinued Patient Care Comments: IUPC discontinued STAGE 2 Pushing: Coached on Pushing; Urge to Push Pushing Position: Pushing with Contractions Pushing Progress: Descent with Pushing Datetime: 02/08/2025 16:31 COMMUNICATION Communication Comments: cnm in room Datetime: 02/08/2025 16:30 Frequency (min): 2-3 Duration (sec): 60-90 Resting Tone IUP (mmHg): 20 Intensity IUP (mmHg): 65 [place] Units (mmHg): 150 Oxygen Method: Room Air Datetime: 02/08/2025 16:13 VAGINAL EXAM Dilatation (cm): 10.0 Effacement (%): 100 Station: 1 Exam by: Edelmira, RN Datetime: 02/08/2025 16:00 Accelerations: 15X15 Decelerations: Early; Variable Datetime: 02/08/2025 15:35 Vaginal Bleeding: Scant Datetime: 02/08/2025 15:08 Patient Position/Activity: Left Lateral; Low Fowlers Datetime: 02/08/2025 14:30 Pitocin Checklist: At Least 1 Acceleration of 15 bpm x 15 Seconds in 30 Minutes or Adequate Variability; No More than 1 Late Deceleration Occurred in Past 30 Minutes; No More than 2 Variable Decelerations > 60 Seconds in Duration and decreasing >60 bpm in 30 minutes; No More than 5 Uterine Contractions in 10 Minutes for any 20 Minute Interval; Uterus Palpates Soft between Contractions; IUPC Resting Tone less than 25 mmHg Category: Category I Datetime: 02/08/2025 13:24 MEDICATIONS Pitocin (milliunits): Started @ 2 Datetime: 02/08/2025 12:00 Monitor Interventions for UA: IUPC Inserted Datetime: 02/08/2025 11:09 Membrane Status: Ruptured Membranes Rupture Method: Artificial Amniotic Fluid Color: Clear Amniotic Fluid Amount: Scant Amniotic Fluid Odor: Normal Cervix, Consistency: Soft Cervix, Position: Anterior Antibiotics: Ampicillin IV 2 Gm Datetime: 02/08/2025 10:31 ANESTHESIA Anesthesia Plans: Epidural Epidural Procedure Other: Pump Started Datetime: 02/08/2025 10:30 Anesthesia Comments: rating pain 0-/10 vps Datetime: 02/08/2025 10:28 Monitor Interventions for FHR: Ultrasound Adjusted Epidural Procedure: Loading Dose Datetime: 02/08/2025 10:13 PROCEDURE TIME OUT Procedure Verify: Correct Patient Identity; Correct Side and Site are Marked; Accurate Procedure Consent Form; Agreement on Procedure to be Done; Correct Patient Position; Relevant Images and Results are Properly Labeled and Displayed Epidural Positioning: Sitting Datetime: 02/08/2025 05:12 Respirations: 17 Temperature (C): 36.6 Temperature Route: Oral Datetime: 02/08/2025 01:18 Stage of : Labor Datetime: 02/07/2025 18:26 Pain Assessment Comments: pt states she is starting to feel some cxtns in abdomen Datetime: 02/07/2025 17:15 PAIN Pain Scale: 0 Pain Presence: None/Denies Pain Type: N/A Cervical Ripening Agents: Cytotec @ Medication Comments: buccal Datetime: 02/07/2025 14:19 Membranes Ruptured Date/Time: 02/08/2025 11:05 Cervical Ripening Agents Other: Pitocin Datetime: 02/07/2025 12:07 PATIENT CARE IV/Blood Work: IV Started
== END 2025-02-10 11:24 | disposition home or self-care (01) | DRG 807 ==
LOC: WFO 11:21 → FBP 11:25
PROVIDERS: ADMIT Nurse Practitioner; ATTEND Nurse Practitioner